=== PATIENT | female | born 1990 | race Hispanic/Latino ===

== ENCOUNTER 2024-03-15 12:25 | Emergency (ER) | payer BC, OTHER ==
[~2024-03-15] VITALS: Ht 149.9 cm; Wt 108.9 kg
[2024-03-15 13:25] LABS: BASOPHILS # (AUTO) 0.1 (0.0-0.1); BASOPHILS % 0.5 % (0.0-1.0); EOSINOPHILS # (AUTO) 0.4 (0.0-0.4); EOSINOPHILS % 3.2 % (0.0-6.0); HEMATOCRIT 36.9 % (34.2-44.1); LYMPHOCYTES # (AUTO) 2.5 (1.0-3.2); LYMPHOCYTES % 18.7 % (18.0-39.1); MEAN CORPUSCULAR HEMOGLOBIN 24.2 pg (28-32); MEAN CORPUSCULAR HGB CONC 29.8 g/dL (31-35); MEAN CORPUSCULAR VOLUME 81.1 fL (81-99); MONOCYTES # (AUTO) 0.9 (0.2-0.8); MONOCYTES % 6.5 % (4.4-11.3); NEUTROPHILS # (AUTO) 9.4 (2.1-6.9); NEUTROPHILS % 70.8 % (38.7-80.0); PLATELET COUNT 484 x10e3/uL (140-360); RED BLOOD COUNT 4.55 x10e6/uL (3.6-5.1); RED CELL DISTRIBUTION WIDTH 15.9 % (11.7-14.4); WHITE BLOOD COUNT 13.28 x10e3/uL (4.8-10.8)
[2024-03-15 13:36] LABS: PROTHROMBIN TIME 13.7 seconds (11.9-14.5)
[2024-03-15] MEDS: SODIUM CHLORIDE 0.9% 1000ML 1,000 ML IV STA ×2 (13:38→14:32)
[2024-03-15] MEDS: Morphine 4mg INJECTION 4 MG/ML INJ IV STA (13:39)
[2024-03-15] MEDS: ONDANSETRON HCL INJ 2MG/ML 2ML 2 MG/ML VIAL IV STA (13:39)
[2024-03-15 13:45] LABS: ALANINE AMINOTRANSFERASE 25 IU/L (0-55); ALBUMIN/GLOBULIN RATIO 0.9 (0.8-2.0); ALKALINE PHOSPHATASE 123 IU/L (40-150); ANION GAP 13.7 mmol/L (8-16); BILIRUBIN,TOTAL 0.5 mg/dL (0.2-1.2); BLOOD UREA NITROGEN 13 mg/dL (7-26); BUN/CREATININE RATIO 14 (6-25); CALCIUM 9.8 mg/dL (8.4-10.2); CARBON DIOXIDE 21 mmol/L (22-29); CHLORIDE 104 mmol/L (98-107); CREATININE, SERUM 0.92 mg/dL (0.57-1.11); EST GLOMERULAR FILTRATION RATE 85 ML/MIN (>=60); GLUCOSE 109 mg/dL (74-118); POTASSIUM 3.7 mmol/L (3.5-5.1); SODIUM 135 mmol/L (136-145); TOTAL PROTEIN 8.3 g/dL (6.5-8.1)
[2024-03-15] MEDS: KETOROLAC TROMETHAMINE 30 MG/ML VIAL IV STA (13:50)
[2024-03-15] MEDS: CLINDAMYCIN PHOS 900MG/ 50ML 50 ML IV ONE (14:32)
[2024-03-15 14:35] VITALS: PULSE 102; RESP 18
[2024-03-15] MEDS ORDERED: IOPAMIDOL 370 MG/ML 100 ML INFUS..BTL INJ ONE (15:03)
[2024-03-15 15:23] VITALS: TEMP 99
[2024-03-15] MEDS ORDERED: CLINDAMYCIN HC150 MG PO (16:11)
[2024-03-15] MEDS ORDERED: CEFDINIR300 MG PO (16:11)
[2024-03-15] MEDS ORDERED: HYDROCODON-ACE1 EA11 PO (16:11)
[2024-03-15] MEDS ORDERED: ONDANSETRON ODT4 MG PO (16:11)
[2024-03-15 16:36] VITALS: BP 145/79; PULSE 89; RESP 18; O2SAT 100
== END 2024-03-15 16:21 | disposition home or self-care (01) ==
LOC: ER 13:35 → EDBD 13:35 → ER 16:21
DX: R50.9 Fever, unspecified (principal); K04.7 Periapical abscess without sinus; K02.9 Dental caries, unspecified
CPT/HCPCS: 36415; 70487; 80053; 83605; 84702; 85025; 85610; 85730; 87040; 99284; J0696; J1885; J2270; J2405; J7030; Q9967

== ENCOUNTER 2024-06-01 22:20 | Emergency (ER) | payer BC ==
[~2024-06-01] VITALS: Ht 149.9 cm; Wt 108.9 kg
[~2024-06-01 22:20] MED LIST: CEFDINIR300 MG PO; CLINDAMYCIN HC150 MG PO; HYDROCODON-ACE1 EA11 PO; ONDANSETRON ODT4 MG PO
[2024-06-01 22:35] VITALS: PULSE 89; RESP 18; TEMP 98
[2024-06-01] MEDS: KETOROLAC TROMETHAMINE 60 MG/2 ML VIAL IM STA (22:54)
[2024-06-01] MEDS: LIDOCAINE 4% PATCH TP ONE (22:56)
[2024-06-02 00:32] VITALS: BP 138/61; O2SAT 99
== END 2024-06-02 00:30 | disposition home or self-care (01) ==
LOC: ER 22:30
DX: S39.012A Strain of muscle, fascia and tendon of lower back, initial encounter (principal); X50.9XXA Other and unspecified overexertion or strenuous movements or postures, initial encounter; Y99.0 Civilian activity done for income or pay; F41.9 Anxiety disorder, unspecified; E66.01 Morbid (severe) obesity due to excess calories
CPT/HCPCS: 72100; 81025; 99283; J1885